=== PATIENT | female | born 1955 | race Caucasian/White ===

== ENCOUNTER 2022-01-04 06:25 | Day surgery (SDC) | payer OTHER ==
[~2022-01-04 06:25] MED LIST: ALTACE2.5 MG PO; ANASTROZOLE1 MG PO; D3 + K2 DOTS 11 EACH PO; NEXIUM10 MG PO; TOPROL XL25 M1 PO
== END 2022-01-04 21:55 | disposition home or self-care (01) ==
LOC: CIR.AMB 06:25
PROVIDERS: ATTEND Surgery
DX: C50.411 Malignant neoplasm of upper-outer quadrant of right female breast (principal); C50.912 Malignant neoplasm of unspecified site of left female breast; N63.32 Unspecified lump in axillary tail of the left breast; N63.31 Unspecified lump in axillary tail of the right breast; D24.1 Benign neoplasm of right breast